=== PATIENT | male | born 1985 | race Hispanic/Latino ===

== ENCOUNTER 2022-07-20 13:02 | Emergency (ER) | payer SELFPAY ==
[2022-07-20 14:12] LABS: Bilirubin Neg (Negative); Blood, Urine Negative (Negative); Clarity Clear (Clear); Glucose, Urine (Dipstick) Normal (Negative); Ketone, Urine Negative (Negative); Leukocyte Negative (Negative); Nitrite Negative (Negative); Protein, Urine (Dipstick) Negative (Neg-Trace); Specific Gravity, Urine 1.005 (1.005-1.030); Urobilinogen Normal mg/dL (Less than 2)
[2022-07-20 14:13] LABS: #Eosinphils 0.1 10x3/uL (0.0-0.5); #Monocytes 0.4 10x3/uL (0.0-1.1); #Neutrophils 3.7 10x3/uL (1.5-8.4); %Basophils 0.4 % (0.0-2.0); %Eosinophils 1.9 % (0.0-6.0); %Lymphocytes 26.6 % (18.0-47.0); %Monocytes 6.3 % (0.0-10.0); %Neutrophils 64.4 % (40.0-75.0); Hemoglobin 14.8 g/dL (13.5-17.5); Mean Corpuscular HGB CONC 33.9 g/dL (32.0-36.0); Mean Corpuscular Hemoglobin 28.9 pg (27.0-33.0); Mean Corpuscular Volume 85.4 fl (81.2-95.1); Platelet Count 219 10x3/uL (150-450); Red Blood Cell (RBC) Count 5.12 10x6/uL (4.32-5.72); White Blood Cell (WBC) Count 5.7 10x3/uL (3.5-10.5)
[2022-07-20 14:29] LABS: ALT (SGPT) 31 U/L (8-55); AST (SGOT) 26 U/L (5-34); Albumin 4.7 g/dL (3.5-5.0); Alkaline Phosphatase 88 U/L (40-110); Anion Gap 14 mmol/L (10-20); BUN (Urea Nitrogen) 11 mg/dL (8.9-20.6); Bilirubin, Total 0.5 mg/dL (0.2-1.2); Calc. Creatinine Clearance 0 mL/min (70-130); Calcium 9.4 mg/dL (7.8-10.44); Carbon Dioxide 23 mmol/L (22-29); Chloride 105 mmol/L (98-107); Estimated GFR 119; Globulin 2.6 g/dL (2.4-3.5); Glucose 106 mg/dL (70-105); Lipase 21 U/L (8-78); Potassium 4.1 mmol/L (3.5-5.1); Protein, Total 7.3 g/dL (6.0-8.3); Sodium 138 mmol/L (136-145)
== END 2022-07-20 14:57 | disposition home or self-care (01) ==
LOC: CSHERS 13:02
DX: R07.9 Chest pain, unspecified (principal); M54.6 Pain in thoracic spine
CPT/HCPCS: 36415; 71045; 80053; 81003; 83690; 84484; 85025; 93005

== ENCOUNTER 2022-07-22 08:17 | Emergency (ER) | payer SELFPAY ==
[2022-07-22] MEDS ORDERED: diphenhydrAMINE 50 MG/ML VIAL ONE (09:21)
[2022-07-22] MEDS ORDERED: Metoclopramide HCl 10 MG/2 ML VIAL ONE (09:21)
== END 2022-07-22 11:17 | disposition home or self-care (01) ==
LOC: CSHERS 08:17
DX: R51.9 Headache, unspecified (principal)
CPT/HCPCS: 70450; 96365; 96375; J1200; J2765

== ENCOUNTER 2022-08-10 21:01 | Emergency (ER) | payer SELFPAY | END 2022-08-10 22:00 | disposition home or self-care (01) | LOC: CSHERS 21:01 | DX: M54.6 Pain in thoracic spine (principal); G89.29 Other chronic pain; X50.0XXA Overexertion from strenuous movement or load, initial encounter; Y99.0 Civilian activity done for income or pay | CPT/HCPCS: 99283 ==

== ENCOUNTER 2022-08-31 12:49 | Emergency (ER) | payer SELFPAY ==
[2022-08-31] MEDS ORDERED: methylPREDNISolone Sod Succ/PF 125 MG/2 ML VIAL ONE (15:31)
[2022-08-31] MEDS ORDERED: Bupivacaine PF 0.5% 30 ML VIAL ONE (15:31)
[2022-08-31] MEDS ORDERED: Dexamethasone 10 MG/ML VIAL ONE (15:41)
== END 2022-08-31 16:37 | disposition home or self-care (01) ==
LOC: CSHERS 12:49
DX: G44.229 Chronic tension-type headache, not intractable (principal); M62.830 Muscle spasm of back
CPT/HCPCS: 96372; 99283; J1100; J2930; S0020